=== PATIENT | male | born 1995 | race Caucasian/White ===

== ENCOUNTER 2021-12-20 19:49 | Emergency (ER) | payer SELFPAY ==
[~2021-12-20] VITALS: Ht 190.5 cm; Wt 77.1 kg
[2021-12-20 19:59] VITALS: BP 125/64
--- NOTE | 2021-12-20 20:01 | NUR ---
Dr. Montiel examining patient.
[2021-12-20] MEDS ORDERED: hydrOXYzine PAMOATE 25 MG CAP PO STA (20:13)
[2021-12-20] MEDS ORDERED: HYDR25CA1 PO (20:21)
--- NOTE | 2021-12-20 20:29 | NUR ---
Patient taken to X-ray via WC.
[2021-12-20 21:38] VITALS: BP 122/64
--- NOTE | 2021-12-20 21:38 | NUR ---
Patient discharged with v/s stable. Written and verbal after care instructions given and explained. Patient alert, oriented and verbalized understanding of instructions. Ambulatory with steady gait. All questions addressed prior to discharge. ID band removed. Patient advised to follow up with PMD. Rx of Hydroxyzine Pamoate given. Patient educated on indication of medication including possible reaction and side effects. Opportunity to ask questions provided and answered.
== END 2021-12-20 21:38 | disposition home or self-care (01) ==
LOC: MED 19:49
DX: F41.9 Anxiety disorder, unspecified (principal); R07.9 Chest pain, unspecified; F12.90 Cannabis use, unspecified, uncomplicated; Z79.899 Other long term (current) drug therapy
CPT/HCPCS: 71045; 93005; 99283; Q0092; Q0177